=== PATIENT | female | born 1995 | race American Indian/Alaskan Native ===

== ENCOUNTER 2017-10-27 19:56 | Emergency (ER) | payer MEDICAID ==
[2017-10-27 19:58] VITALS: BMI 28.1
[2017-10-27 20:27] VITALS: BP 130/87; PULSE 90; RESP 16; TEMP 98.7; O2SAT 99
--- NOTE | 2017-10-27 20:34 | ED PDOC ---
Arrival/HPI - General Chief Complaint: Female Genitourinary Time Seen by Provider: 10/27/17 20:24 Historian: Patient - History of Present Illness Narrative History of Present Illness (Text): 10/27/17 20:29 A 22 year old female presents to the emergency department requesting for depo injection. Patient denies any symptomatic complaints. PMD: Dr. Sonali Jimense Past Medical History - Provider Review Nursing Documentation Reviewed: Yes - Infectious Disease Hx of Infectious Diseases: None - Tetanus Immunization Tetanus Immunization: Unknown - Past Medical History Past Medical History: No Previous - Cardiac Hx Cardiac Disorders: No Hx Hypertension: No - Pulmonary Hx Respiratory Disorders: No - Neurological Hx Neurological Disorder: No - HEENT Hx HEENT Disorder: No - Renal Hx Renal Disorder: No - Endocrine/Metabolic Hx Endocrine Disorders: No - Hematological/Oncological Hx Anemia: Yes - Integumentary Hx Dermatological Disorder: No - Musculoskeletal/Rheumatological Hx Musculoskeletal Disorders: No - Gastrointestinal Hx Gastrointestinal Disorders: No - Genitourinary/Gynecological Hx Genitourinary Disorders: Yes Other/Comment: DYSMENORRHEA. - Psychiatric Hx Psychophysiologic Disorder: No Hx Depression: No Hx Substance Use: No - Past Surgical History Past Surgical History: No Previous - Anesthesia Hx Anesthesia: No - Suicidal Assessment Feels Threatened In Home Enviroment: No Family/Social History - Physician Review Nursing Documentation Reviewed: Yes Family/Social History: No Known Family HX Smoking Status: Never Smoked Hx Alcohol Use: No Hx Substance Use: No Hx Substance Use Treatment: No Allergies/Home Meds Allergies/Adverse Reactions: Allergies No Known Allergies Allergy (Verified 10/27/17 20:02) Home Medications: Home Meds Medication Instructions Recorded Confirmed MedroxyPROGESTERone [Depo-Provera] 150 mg IM PRN PRN 10/27/17 10/27/17 Review of Systems - Physician Review All systems were reviewed & negative as marked: Yes - Review of Systems Constitutional: Other (patient has no symptomatic complaints) Psychiatric: Normal (alert and oriented x 3) Physical Exam Vital Signs Reviewed: Yes Vital Signs Temp Pulse Resp BP Pulse Ox 10/27/17 20:41 98.7 F 90 16 130/87 99 10/27/17 20:06 98.7 F 90 16 130/87 99 Temperature: Afebrile Blood Pressure: Normal Pulse: Regular Respiratory Rate: Normal Appearance: Positive for: Well-Appearing Pain Distress: None Mental Status: Positive for: Alert and Oriented X 3 - Systems Exam Head: Present: Atraumatic, Normocephalic Pupils: Present: PERRL Extroacular Muscles: Present: EOMI Conjunctiva: Present: Normal Mouth: Present: Moist Mucous Membranes Neurological: Present: GCS=15, CN II-XII Intact, Speech Normal Skin: Present: Warm, Dry, Normal Color. No: Rashes Psychiatric: Present: Alert, Oriented x 3, Normal Insight, Normal Concentration Medical Decision Making ED Course and Treatment: 10/27/17 20:31 Impression: 22 year old female here for depo injection. Plan: -- Reassess and disposition Prior Visits: Notes and results from previous visits were reviewed. Patient was last seen in the emergency department on 09/08/2017 for depo injection. Patient was d/c home. Progress Notes: - Medication Orders Current Medication Orders: Discontinued Medications Home Med (Home Med) 1 unit IM ONCE ONE Stop: 10/27/17 20:37 Last Admin: 10/27/17 20:41 Dose: 1 unit Comments: Lot [id number] expiry March 2021 IM Administration Charges Document 10/27/17 20:41 MAURICE (Rec: 10/27/17 20:45 MAURICE [id number]) Injection Site MAR Injection Site Right Deltoid Charges for Administration # of IM Administrations 1 - Scribe Statement The provider has reviewed the documentation as recorded by the Hernandez Lindquist Provider Scribe Attestation: All medical record entries made by the Scribe were at my direction and personally dictated by me. I have reviewed the chart and agree that the record accurately reflects my personal performance of the history, physical exam, medical decision making, and the department course for this patient. I have also personally directed, reviewed, and agree with the discharge instructions and disposition. Disposition/Present on Arrival - Present on Arrival Any Indicators Present on Arrival: No History of DVT/PE: No History of Uncontrolled Diabetes: No Urinary Catheter: No History of Decub. Ulcer: No History Surgical Site Infection Following: None - Disposition Have Diagnosis and Disposition been Completed?: Yes Diagnosis: Family planning, Depo-Provera contraception monitoring/administration Disposition: HOME/ ROUTINE Disposition Time: 20:40 Condition: GOOD Referrals: Keyur Jimenes [Primary Care Provider] - Follow up with primary Forms: [employer] (Persian)
== END 2017-10-27 20:50 | disposition home or self-care (01) ==
LOC: ED 19:56
DX: Z30.9 Encounter for contraceptive management, unspecified (principal)

== ENCOUNTER 2018-01-22 15:30 | Emergency (ER) | payer SELFPAY ==
[2018-01-22 15:31] VITALS: BMI 28.1
--- NOTE | 2018-01-22 16:04 | ED PDOC ---
Arrival/HPI - General Chief Complaint: Female Genitourinary Time Seen by Provider: 01/22/18 15:51 Historian: Patient - History of Present Illness Narrative History of Present Illness (Text): 01/22/18 16:03 22 yo old female with Past medical history of dysfunctional uterine bleeding present to Emergency department today requesting injection of a Depo medication. States her PROGRAM ENGINEER was closed today, so she came to Emergency department with the depo to be injected. States her LMP was yesterday, 01/21/18. She denies any somatic complaint at this time. Past Medical History - Provider Review Nursing Documentation Reviewed: Yes - Infectious Disease Hx of Infectious Diseases: None - Tetanus Immunization Tetanus Immunization: Unknown - Past Medical History Past Medical History: No Previous - Cardiac Hx Cardiac Disorders: No Hx Hypertension: No - Pulmonary Hx Respiratory Disorders: No - Neurological Hx Neurological Disorder: No - HEENT Hx HEENT Disorder: No - Renal Hx Renal Disorder: No - Endocrine/Metabolic Hx Endocrine Disorders: No - Hematological/Oncological Hx Anemia: No - Integumentary Hx Dermatological Disorder: No - Musculoskeletal/Rheumatological Hx Musculoskeletal Disorders: No - Gastrointestinal Hx Gastrointestinal Disorders: No - Genitourinary/Gynecological Hx Genitourinary Disorders: Yes Other/Comment: DYSMENORRHEA. - Psychiatric Hx Psychophysiologic Disorder: No Hx Depression: No Hx Substance Use: No - Past Surgical History Past Surgical History: No Previous - Anesthesia Hx Anesthesia: No Hx Anesthesia Reactions: No Hx Malignant Hyperthermia: No - Suicidal Assessment Feels Threatened In Home Enviroment: No Family/Social History - Physician Review Nursing Documentation Reviewed: Yes Family/Social History: Unknown Family HX Smoking Status: Never Smoked Hx Alcohol Use: No Hx Substance Use: No Hx Substance Use Treatment: No Allergies/Home Meds Allergies/Adverse Reactions: Allergies No Known Allergies Allergy (Verified 01/22/18 15:56) Home Medications: Home Meds Medication Instructions Recorded Confirmed MedroxyPROGESTERone [Depo-Provera] 150 mg IM PRN PRN 10/27/17 01/22/18 Review of Systems - Physician Review All systems were reviewed & negative as marked: Yes - Review of Systems Constitutional: Normal Eyes: Normal ENT: Normal Respiratory: Normal Cardiovascular: Normal Gastrointestinal: Normal Genitourinary Female: Other (Depo injection) Musculoskeletal: Normal Skin: Normal Neurological: Normal Endocrine: Normal Hemo/Lymphatic: Normal Psychiatric: Normal Physical Exam Vital Signs Reviewed: Yes Vital Signs Temp Pulse Resp BP Pulse Ox 01/22/18 15:48 99.5 F 89 20 119/82 97 Temperature: Afebrile Blood Pressure: Normal Pulse: Regular Respiratory Rate: Normal Appearance: Positive for: Well-Appearing, Non-Toxic, Comfortable Pain Distress: None Mental Status: Positive for: Alert and Oriented X 3 - Systems Exam Head: Present: Atraumatic, Normocephalic Pupils: Present: PERRL Extroacular Muscles: Present: EOMI Conjunctiva: Present: Normal Mouth: Present: Moist Mucous Membranes Neck: Present: Normal Range of Motion Respiratory/Chest: Present: Clear to Auscultation, Good Air Exchange. No: Respiratory Distress, Accessory Muscle Use Cardiovascular: Present: Regular Rate and Rhythm, Normal S1, S2. No: Murmurs Abdomen: Present: Normal Bowel Sounds. No: Tenderness, Distention, Peritoneal Signs Back: Present: Normal Inspection Upper Extremity: Present: Normal Inspection. No: Cyanosis, Edema Lower Extremity: Present: Normal Inspection. No: Edema Neurological: Present: GCS=15, CN II-XII Intact, Speech Normal Skin: Present: Warm, Dry, Normal Color. No: Rashes Psychiatric: Present: Alert, Oriented x 3, Normal Insight, Normal Concentration Medical Decision Making ED Course and Treatment: 01/22/18 16:12 22yo female in Emergency department to be injected with her Depo medication. she reports history of dysfunctional uterine bleeding and takes Depo to prevent the abnormal bleed. Review of her chart show that she was here in October for same depo injection. she had no somatic complaint in Emergency department. Her Upreg was negative in Emergency department. Disposition/Present on Arrival - Present on Arrival Any Indicators Present on Arrival: No History of DVT/PE: No History of Uncontrolled Diabetes: No Urinary Catheter: No History of Decub. Ulcer: No History Surgical Site Infection Following: None - Disposition Have Diagnosis and Disposition been Completed?: Yes Diagnosis: Depo-Provera contraceptive status Disposition: HOME/ ROUTINE Disposition Time: 16:10 Patient Plan: Discharge Patient Problems: Current Active Problems Problem Status Onset Depo-Provera contraceptive status Acute Condition: STABLE Discharge Instructions (ExitCare): Control Options Additional Instructions: Follow up with your PROGRAM ENGINEER Return to Emergency department for any new symptoms [facility] [[facility] - Follow up with [facility] [Outside] - Follow up with primary Forms: [employer] (Canadian)
[2018-01-22 16:29] VITALS: BP 121/72; PULSE 79; RESP 19; TEMP 0.8; O2SAT 100
== END 2018-01-22 16:31 | disposition home or self-care (01) ==
LOC: ED 15:30
DX: Z30.42 Encounter for surveillance of injectable contraceptive (principal)